=== PATIENT | female | born 1955 | race Caucasian/White ===

== ENCOUNTER 2017-09-02 12:40 | Emergency (ER) | payer BC ==
[~2017-09-02] VITALS: Ht 152.4 cm; Wt 89.8 kg
[2017-09-02 12:46] VITALS: Ht 152.4 cm; Wt 89.8 kg
[2017-09-02 13:28] VITALS: BP 135/85
[2017-09-02 13:51] LABS: microscopic required? NO
[2017-09-02 14:28] LABS: urine erythrocyte NEGATIVE (NEGATIVE)
== END 2017-09-02 13:28 | disposition home or self-care (01) ==
LOC: ED 12:40
PROVIDERS: Emergency Medicine
DX: N39.0 Urinary tract infection, site not specified (principal); Z88.1 Allergy status to other antibiotic agents

== ENCOUNTER 2018-08-29 21:21 | Emergency (ER) | payer BC ==
[~2018-08-29] VITALS: Ht 157.5 cm; Wt 87.5 kg
[2018-08-29 21:27] VITALS: Ht 157.5 cm; Wt 87.5 kg
[2018-08-29 22:23] LABS: PLATELET COUNT 230 x10^3mcL (130-400)
[2018-08-29 22:28] LABS: BASOPHIL % 0 % (0-2); RED CELL DISTRIBUTION WIDTH 15.1 % (11.5-14.5)
[2018-08-29 22:36] LABS: CALCIUM 9.2 mg/dL (8.5-10.1); CARBON DIOXIDE 28.9 mmol/L (21-32); CHLORIDE SERUM 105 mmol/L (98-107); CREATININE SERUM 0.8 mg/dL (0.6-1.0); GFR1 > 60 mL/min; GLUCOSE SERUM 123 mg/dL (74-106); SODIUM SERUM 144 mmol/L (136-145)
[2018-08-29 22:41] LABS: ALBUMIN 3.6 g/dL (3.4-5.0); ALKALINE PHOSPHATASE 97 U/L (46-116); ALT/SGPT 33 U/L (14-59); AMYLASE 44 U/L (25-115); AST/SGOT 25 U/L (15-37); BILIRUBIN TOTAL 0.32 mg/dL (0.20-1.00); LIPASE 131 IU/L (73-393); TOTAL PROTEIN, SERUM 7.7 g/dL (6.4-8.2)
[2018-08-30 00:21] VITALS: BP 135/88
== END 2018-08-30 00:21 | disposition home or self-care (01) ==
LOC: ED 21:21
PROVIDERS: Emergency Medicine
DX: H81.10 Benign paroxysmal vertigo, unspecified ear (principal); R11.10 Vomiting, unspecified; E03.9 Hypothyroidism, unspecified; E78.00 Pure hypercholesterolemia, unspecified
CPT/HCPCS: J2405; J2765; J7030; J8597